=== PATIENT | female | born 1995 | race Caucasian/White ===

== ENCOUNTER 2022-01-15 19:43 | Inpatient (IN) | payer OTHER ==
[~2022-01-15] VITALS: Ht 160 cm; Wt 96.2 kg
[2022-01-16] MEDS ORDERED: PRENATAL TABLE1 EAC1 PO (10:51)
[2022-01-16] MEDS ORDERED: IRON236 MG PO (10:51)
== END 2022-01-18 17:31 | disposition home or self-care (01) | DRG 807 ==
LOC: OBS/DEL 19:43 → LDR 01-16 10:15 → OBS/DEL 01-16 10:15 → OB/GYN 01-16 14:39
PROVIDERS: ADMIT Specialist; ATTEND Specialist
PROC: BY4CZZZ Ultrasonography of Second Trimester, Single Fetus (ICD-10-PCS; 2022-01-15)
PROC: 10E0XZZ Delivery of Products of Conception, External Approach (ICD-10-PCS; principal; 2022-01-16)
PROC: 4A1HXCZ Monitoring of Products of Conception, Cardiac Rate, External Approach (ICD-10-PCS; 2022-01-16)
DX: O60.14X0 Preterm labor third trimester with preterm delivery third trimester, not applicable or unspecified (principal); O42.013 Preterm premature rupture of membranes, onset of labor within 24 hours of rupture, third trimester; Z3A.36 36 weeks gestation of pregnancy; Z37.0 Single live birth; Z20.822 Contact with and (suspected) exposure to COVID-19

== ENCOUNTER → 2022-11-22 | Emergency (ER) | payer OTHER ==
[~2022-11-22] VITALS: Ht 152.4 cm; Wt 93.9 kg
[~2022-11-22] MED LIST: IRON236 MG PO; PRENATAL TABLE1 EAC1 PO
== END | disposition home or self-care (01) ==
LOC: ER 14:46
DX: J10.1 Influenza due to other identified influenza virus with other respiratory manifestations (principal); Z20.822 Contact with and (suspected) exposure to COVID-19

== ENCOUNTER 2022-11-24 20:11 | Emergency (ER) | payer OTHER ==
[~2022-11-24] VITALS: Ht 160 cm; Wt 93.9 kg
== END 2022-11-24 22:30 | disposition home or self-care (01) ==
LOC: ER 20:11
DX: B34.9 Viral infection, unspecified (principal); J10.1 Influenza due to other identified influenza virus with other respiratory manifestations; Z20.822 Contact with and (suspected) exposure to COVID-19

== ENCOUNTER 2022-12-18 12:42 | Emergency (ER) | payer OTHER ==
[~2022-12-18] VITALS: Ht 160 cm; Wt 93.0 kg
[2022-12-18] MEDS ORDERED: KETO10TA2 PO ×2 (19:49→19:50)
== END 2022-12-18 19:56 | disposition home or self-care (01) ==
LOC: ER 12:42
DX: S90.122A Contusion of left lesser toe(s) without damage to nail, initial encounter (principal); S90.02XA Contusion of left ankle, initial encounter; X58.XXXA Exposure to other specified factors, initial encounter; Y93.89 Activity, other specified; Y92.89 Other specified places as the place of occurrence of the external cause; Y99.9 Unspecified external cause status

== ENCOUNTER 2023-04-21 16:26 | Emergency (ER) | payer OTHER ==
[~2023-04-21] VITALS: Ht 160 cm; Wt 93.0 kg
[~2023-04-21 16:26] MED LIST changes: +KETO10TA2 PO
== END 2023-04-21 18:06 | disposition home or self-care (01) ==
LOC: ER 16:26
DX: M79.18 Myalgia, other site (principal)